=== PATIENT | female | born 1950 | race Caucasian/White ===

== ENCOUNTER → 2017-09-10 07:28 | Outpatient (CLI) | payer OTHER, SELFPAY ==
[2017-09-10 08:41] LABS: Add Manual Diff / Slide Review YES; Hematocrit 41.2 % (36-46); Hemoglobin 13.7 g/dL (12.0-16.0); Mean Corpuscular HGB Conc 33.2 % (30-36); Mean Corpuscular Volume 96.1 fL (80-100); Platelet Count 225 X10^3/uL (150-400); Red Blood Cell Count 4.28 X10^6/uL (4.0-5.2); Red Cell Distribution Width 12.8 % (11.6-14.8); White Blood Cell Count 3.8 X10^3/uL (4.5-11.0)
[2017-09-10 08:50] LABS: Alanine Aminotransferase 28 IU/L (9-52); Albumin 4.3 g/dL (3.5-5.0); Albumin Globulin Ratio 1.7 (1.0-2.8); Alkaline Phosphatase 41 U/L (38-126); Aspartate Aminotransferase 26 IU/L (14-36); BUN Creatinine Ratio 17.5 (6-22); Bilirubin Total 0.8 mg/dL (0.2-1.3); Blood Urea Nitrogen 14 mg/dL (7-17); Calcium 9.5 mg/dL (8.4-10.2); Carbon Dioxide 33 mmol/L (22-32); Chloride 100 mmol/L (98-107); Cholesterol 213 mg/dL (140-199); Estimated Glomerular Filt Rate > 60.0 mL/min (>60); Globulin 2.6 g/dL (1.7-4.1); Glucose 93 mg/dL (80-110); HDL Cholesterol 63 mg/dL (40-60); HEMOLYSIS < 15 (0-50); LDL Cholesterol Calculated 136 mg/dL (<100); Potassium 4.3 mmol/L (3.4-5.1); Sodium 140 mmol/L (137-145); Total Protein 6.9 g/dL (6.3-8.2); Triglycerides 69 mg/dL (35-150)
[2017-09-10 09:16] LABS: Neutrophils Absolute Manual 2014 /uL (3000-5900); Total Cells Counted 100
[2017-09-10 09:17] LABS: RBC Morphology Normal Morphology
[2017-09-10 09:22] LABS: TSH w/ Reflex to FT4 3.88 uIU/mL (0.47-4.68)
== END ==
PROVIDERS: PCP Family Medicine; Visit Provider Family Medicine
DX: K21.9 Gastro-esophageal reflux disease without esophagitis (principal); E78.5 Hyperlipidemia, unspecified
CPT/HCPCS: 36415; 80053; 80061; 84443; 85025

== ENCOUNTER → 2017-10-06 13:37 | Outpatient (CLI) | payer OTHER, SELFPAY ==
--- NOTE | 2017-10-06 13:39 | DI.RAD.S_ITS ---
This blank DEXA report has been sent in error by the PACS system. The correct and complete report will be forthcoming in 1-2 days. Thank you for your patience and understanding. Dictated by: Linda Whittington MD, PhD on 10/07/2017 at 9:53 Approved by: Linda Whittington MD, PhD on 10/07/2017 at 16:33
== END ==
PROVIDERS: PCP Family Medicine; Visit Provider Family Medicine
DX: M85.851 Other specified disorders of bone density and structure, right thigh (principal)
CPT/HCPCS: 77080

== ENCOUNTER 2017-11-01 09:04 | Emergency (ER) | payer OTHER, SELFPAY ==
--- NOTE | 2017-11-01 09:11 | ED_ITS ---
HPI - Arrhythmia/Palpitations General Chief Complaint: Arrhythmia/Palpitations Stated Complaint: SENT BY HER DOCTOR FOR PALPITATIONS Time Seen by Provider: 11/01/17 09:06 Source: patient Mode of arrival: ambulatory Limitations: no limitations History of Present Illness HPI narrative: 66-year-old female here for evaluation of palpitations. Patient states that they have been going on for the past several weeks. She states that she called her primary doctor today to schedule appointment the told her to come to the emergency department. Has never had these prior to a couple weeks ago. They are not associated with chest pain, shortness of breath , lightheadedness, passing out. She states she feels that more at night. Related Data Home Medications Medication Instructions Recorded Confirmed cholecalciferol (vitamin D3) 2,000 mg PO QDAY #0 07/03/10 11/01/17 [Vitamin D3] diclofenac 1 % topical gel 2 gram TOP QID PRN 09/22/17 11/01/17 [id number]-zyouurnlavmcs-rscj 1 - 2 cap PO QDAY PRN 11/01/17 11/01/17 calcium carbonate-vitamin D3 1 tab PO DAILY 11/01/17 11/01/17 [Calcium 600 + D(3)] omega-3 fatty acids [Fish Oil 1,000 mg PO BID 11/01/17 11/01/17 Concentrate] Previous Rx's Medication Instructions Recorded ranitidine HCl [Zantac] 150 mg PO BID #60 tab 12/21/16 metronidazole [MetroCream] 0.75 % TOPICAL BID #60 gm 08/16/17 lactobacillus combination no.8 3 3,000 mmu cells PO DAILY #90 cap 09/22/17 billion cell capsule multivitamin tablet 1 tab PO DAILY #90 tab 09/22/17 vitamin B complex tablet 1 tab PO DAILY #90 tab 09/22/17 Allergies Allergy/AdvReac Type Severity Reaction Status Date / Time Sulfa (Sulfonamide Allergy Mild Verified 09/22/17 10:45 Antibiotics) [SULFA (SULFONAMIDE ANTIBIOTICS)] Review of Systems Constitutional Denies fever(s), Denies frequent falls and Denies headache(s) ENT Ears, Nose, Mouth, and Throat: Denies vertigo, Denies dizziness and Denies headache(s) Cardiovascular Denies chest pain, Denies chest pain with activity, Denies syncope, Denies edema , Reports irregular heart rhythm, Denies radiating jaw, neck or arm pain, Reports palpitations and Denies dyspnea Respiratory Denies dyspnea and Denies wheezing Gastrointestinal Gastrointestinal: Denies abdominal pain, Denies change in bowel habits, Denies diarrhea, Denies nausea and Denies vomiting Musculoskeletal Denies myalgias and Denies arthralgias Integumentary/Breasts Denies lesions and Denies rash Neurologic Denies behavioral changes, Denies vertigo, Denies dizziness, Denies syncope, Denies frequent falls and Denies headache(s) Psychiatric Denies behavioral changes Endocrine Reports palpitations Hematologic/Lymphatic Denies easy bleeding and Denies easy bruising Allergic/Immunologic Denies wheezing FOR[facility] Medical History Carpal tunnel syndrome (Chronic ~1974) Chronic sinusitis (Chronic) Cluster headache (Chronic ~1993) Irregular menstrual cycle (Chronic ~1970) Osteoarthritis (Chronic ~2010) Ovarian cyst (Chronic ~1970) Rosacea (Chronic ~2012) Chicken pox (Resolved ~1956) Measles (Resolved ~1958) Surgical History H/O toe surgery (Acute) Anesthesia (Resolved) History of carpal tunnel repair (~1992) History of tonsillectomy (~1970) Status post breast biopsy Status post laparoscopy (~1983) Family History Father Age: 94 Osteoarthritis High cholesterol Grandfather Heart disease Hypertension Grandmother Heart disease Hypertension Stroke Mother Age: 94 Congestive heart failure Hypertension High cholesterol Grandfather Cancer Sister Cancer Social History marital status: number of children: 0 household members: spouse pets and animals: Yes education level: high school occupational status: other (retired) Smoking Status: Never smoker alcohol intake: current substance use type: does not use Exam Initial Vital Signs Initial Vital Signs: Vital Signs Temperature 98.1 F 11/01/17 09:24 Pulse Rate 80 11/01/17 09:24 Respiratory Rate 23 11/01/17 09:24 Blood Pressure 156/72 H 11/01/17 09:24 Pulse Oximetry 100 11/01/17 09:24 Const General: cooperative, healthy appearing, comfortable, well developed, well groomed and No acute distress Orientation: alert, awake and oriented x3 Resp Effort & Inspection: normal respiratory effort Auscultation: clear to auscultation bilaterally Cardio Rate: regular rate Rhythm: regular rhythm Heart Sounds: no murmurs Pulses: radial pulses present GI Inspection: non-distended Palpation: soft, No firm and No tender Skin Lesions: no lesions Rashes: no rashes Neuro General: alert, awake and oriented x3 Extrem General: normal to inspection and capillary refill normal Psych Appearance: grossly normal and well kempt Course Orders Ordered: ED Orders 11/01/17 09:07 EKG-12 Lead Stat 11/01/17 09:10 Basic Metabolic Panel Stat Complete Blood Count AUTO DIFF Stat Thyroid Stimulating Hormone Stat Vital Signs - 8 hr 11/01/17 09:24 11/01/17 09:30 11/01/17 10:42 Temperature 98.1 F Pulse Rate 80 69 62 Respiratory Rate 23 12 15 Blood Pressure 156/72 H Blood Pressure [Left Arm] 156/93 H 141/83 H Pulse Oximetry 100 100 100 MDM - Arrhythmia/Palpitations Lab Data Attestation: I reviewed the patient's lab results. Result diagrams: 11/01/17 09:10 11/01/17 09:10 Lab Results 11/01/17 11/01/17 11/01/17 Range/Units 09:10 09:10 09:10 WBC 4.9 (4.5-11.0) X10^3/uL RBC 4.31 (4.0-5.2) X10^6/uL Hgb 14.0 (12.0-16.0) g/dL Hct 41.2 (36-46) % MCV 95.4 (80-100) fL MCH 32.4 (26-34) PG MCHC 33.9 (30-36) % RDW 12.7 (11.6-14.8) % Plt Count 226 (150-400) X10^3/uL Neut % (Auto) 51.2 (50-75) % Lymph % (Auto) 36.2 (25-40) % [place] % (Auto) 8.8 (3-14) % Eos % (Auto) 3.0 (2-4) % Baso % (Auto) 0.8 (0-2) % Neut # (Auto) 2500 L (3254-8161) /uL Sodium 144 (137-145) mmol/L Potassium 3.8 (3.4-5.1) mmol/L Chloride 103 (98-107) mmol/L Carbon Dioxide 31 (22-32) mmol/L BUN 17 (7-17) mg/dL Creatinine 0.70 (0.52-1.04) mg/dL Estimated GFR > 60.0 (>60) mL/min BUN/Creatinine Ratio 24.3 H (6-22) Glucose 92 (80-110) mg/dL Calcium 9.7 (8.4-10.2) mg/dL TSH 4.09 (0.47-4.68) uIU/mL ECG Data Attestation: I personally reviewed and interpreted this ECG as follows: Prior ECG tracings: not available for review Interpretation: Sinus rhythm ventricular rate is 64 normal axis normal intervals Normal QRS normal QTC nonspecific ST T wave changes MDM Narrative Medical decision making narrative: patient in sinus rhythm here in the emergency department. Labs unremarkable. Patient was concerned about hyperthyroidism however her TSH is unremarkable. Not having any associated symptoms such as chest pain or lightheadedness or shortness of breath. Informed patient that she needed to contact her primary doctor to discuss the indications for a Holter monitor. She was given return precautions. Both she and her was at bedside expressed understanding and agreement with plan Discharge Plan Departure Patient Disposition: Home Clinical Impression: Palpitations Instructions: DI for Palpitations Activity Restrictions/Additional Instructions: recommend that you contact your primary care doctor to discuss the indications for a Holter monitor. Return to the emergency department for any new or worsening symptoms Prescriptions: No Action cholecalciferol (vitamin D3) [Vitamin D3] 1,000 UNIT tablet 2,000 mg PO QDAY Qty: 0 RF: 0 ranitidine HCl [Zantac] 150 MG tablet 150 mg PO BID Qty: 60 RF: 11 metronidazole [MetroCream] 0.75 % cream 0.75 % Topical BID Qty: 60 RF: 2 diclofenac sodium 1 % gel 2 gram TOP QID PRN (Reason: Pain, Mild) RF: 0 multivitamin [Multiple Vitamins] tablet 1 tab PO DAILY Qty: 90 RF: 0 vitamin B complex [B Complex-Vitamin B12] tablet 1 tab PO DAILY Qty: 90 RF: 0 lactobacillus combination no.8 [Adult Probiotic] 3 billion cell capsule 3,000 mmu cells PO DAILY Qty: 90 RF: 0 calcium carbonate-vitamin D3 [Calcium 600 + D(3)] 600 mg(1,500mg) -400 unit Tablet 1 tab PO DAILY RF: 0 twlrcyntyx-vbsfztbszivnx-kzne 1 EACH capsule 1 - 2 cap PO QDAY PRN (Reason: Headache) RF: 0 omega-3 fatty acids [Fish Oil Concentrate] 1,000 mg capsule 1,000 mg PO BID RF: 0
[2017-11-01 09:24] VITALS: BP 156/72; PULSE 80; RESP 23; TEMP 36.7; O2SAT 100
[2017-11-01 09:30] VITALS: BP 156/93; PULSE 69; RESP 12; O2SAT 100
[2017-11-01 10:04] LABS: Add Manual Diff / Slide Review NO; Basophils Percent Auto 0.8 % (0-2); Hematocrit 41.2 % (36-46); Lymphocytes Percent Auto 36.2 % (25-40); Mean Corpuscular HGB Conc 33.9 % (30-36); Mean Corpuscular Hemoglobin 32.4 PG (26-34); Mean Corpuscular Volume 95.4 fL (80-100); Monocytes Percent Auto 8.8 % (3-14); Neutrophils Absolute Auto 2500 /uL (3000-5900); Neutrophils Percent Auto 51.2 % (50-75); Platelet Count 226 X10^3/uL (150-400); Red Blood Cell Count 4.31 X10^6/uL (4.0-5.2); Red Cell Distribution Width 12.7 % (11.6-14.8); White Blood Cell Count 4.9 X10^3/uL (4.5-11.0)
[2017-11-01 10:11] LABS: BUN Creatinine Ratio 24.3 (6-22); Blood Urea Nitrogen 17 mg/dL (7-17); Calcium 9.7 mg/dL (8.4-10.2); Carbon Dioxide 31 mmol/L (22-32); Chloride 103 mmol/L (98-107); Estimated Glomerular Filt Rate > 60.0 mL/min (>60); Glucose 92 mg/dL (80-110); HEMOLYSIS < 15 (0-50); Potassium 3.8 mmol/L (3.4-5.1); Sodium 144 mmol/L (137-145)
[2017-11-01 10:42] VITALS: BP 141/83; PULSE 62; RESP 15; O2SAT 100
[2017-11-01 10:43] LABS: Thyroid Stimulating Hormone 4.09 uIU/mL (0.47-4.68)
[2017-11-01 11:18] VITALS: BP 148/81; PULSE 66; RESP 20; O2SAT 97
== END 2017-11-01 11:19 | disposition home or self-care (01) ==
PROVIDERS: Emergency Provider Emergency Medicine; PCP Family Medicine
DX: R00.2 Palpitations (principal)
CPT/HCPCS: 36591; 80048; 84443; 85025; 93005; 99282; 99284

== ENCOUNTER → 2017-11-18 09:23 | Outpatient (CLI) | payer OTHER, SELFPAY ==
--- NOTE | 2017-12-03 16:17 | PM.CARDMON.1 ---
Superintendent Measurement Report Referral & Results Date Patient Seen: 11/18/17 Requesting provider: Jovita Thomas Indication: Palpitations Duration of monitoring (days): 7 Diary information: There 50 diary entries from the patient associated with sinus rhythm and PACs There were 96 patient triggered events associated with sinus rhythm, PACs, PVCs and an episode of SVT/atrial tachycardia with a rate of 129 beats per minute Data: Minimum heart rate identified was 40 beats per minute at 05:07 on 11/24/2017 Maximum heart rate was sinus tachycardia at 150 beats per minute at 09:00 on 11/23/2017 Less than 1% of identified beats or either ventricular supraventricular ectopic in origin Patient had 6 runs of a atrial tachycardia with maximum rate of 140 beats per minute with a duration of 4 beats and the longest was 16 beats at 129 beats per minute Impression: Relatively normal personnel monitor. Occasional PACs and PVCs. Patient's reported symptoms do not appear to be consistently associated with any particular dysrhythmia
--- NOTE | 2017-12-03 16:20 | P.HOLT.S_ITS ---
Crystal Report Developer Report Referral & Results Date Patient Seen: 11/18/17 Requesting provider: Jovita Thomas Indication: Palpitations Duration of monitoring (days): 7 Diary information: There 50 diary entries from the patient associated with sinus rhythm and PACs There were 96 patient triggered events associated with sinus rhythm, PACs, PVCs and an episode of SVT/atrial tachycardia with a rate of 129 beats per minute Data: Minimum heart rate identified was 40 beats per minute at 05:07 on 2017 Maximum heart rate was sinus tachycardia at 150 beats per minute at 09:00 on Less than 1% of identified beats or either ventricular supraventricular ectopic in origin Patient had 6 runs of a atrial tachycardia with maximum rate of 140 beats per minute with a duration of 4 beats and the longest was 16 beats at 129 beats per minute Impression: Relatively normal quality assurance monitor body. Occasional PACs and PVCs. Patient's reported symptoms do not appear to be consistently associated with any particular dysrhythmia
== END ==
PROVIDERS: PCP Family Medicine; Visit Provider Family Medicine
DX: R00.2 Palpitations (principal)
CPT/HCPCS: 0296T

== ENCOUNTER 2018-01-03 07:03 | Day surgery (SDC) | payer OTHER, SELFPAY ==
[2018-01-03 08:15] VITALS: BP 147/97; PULSE 70; RESP 16; TEMP 36.9; O2SAT 99; BMI 21.4
[2018-01-03] MEDS: SODIUM CHLORIDE 0.9% 1,000 ML 200 ML IV (08:25)
--- NOTE | 2018-01-03 09:22 | PM.HP.1 ---
History of Present Illness Date Patient Seen: 01/03/18 Time Patient Seen: 09:23 Chief complaint: [id number] Narrative: Patient is a woman here for screening colonoscopy. Her last exam was 10 years ago. She might have an uncle who has colon cancer. No blood in her stool. Patient History Medical History Carpal tunnel syndrome (Chronic ~1974) Chronic sinusitis (Chronic) Cluster headache (Chronic ~1993) Irregular menstrual cycle (Chronic ~1970) Osteoarthritis (Chronic ~2010) Ovarian cyst (Chronic ~1970) Rosacea (Chronic ~2012) Chicken pox (Resolved ~1956) Measles (Resolved ~1958) Surgical History H/O toe surgery (Acute) Anesthesia (Resolved) History of carpal tunnel repair (~1992) History of tonsillectomy (~1970) Status post breast biopsy Status post laparoscopy (~1983) Family & Social History Family History: Reviewed 01/03/18 by Bob Cleveland MD Social History: household members spouse Tobacco & Substance use: Smoking Status Never smoker alcohol intake current alcohol intake frequency 0-2 drinks per day Meds Home Medications Medication Instructions Recorded Confirmed Type cholecalciferol (vitamin D3) 2,000 mg PO QDAY #0 07/03/10 01/03/18 History [Vitamin D3] metronidazole [MetroCream] 0.75 % TOPICAL BID #60 gm 08/16/17 01/03/18 Rx diclofenac 1 % topical gel 2 gram TOP QID PRN 09/22/17 01/03/18 History lactobacillus combination no.8 3 3,000 mmu cells PO DAILY #90 cap 09/22/17 01/03/18 Rx billion cell capsule multivitamin tablet 1 tab PO DAILY #90 tab 09/22/17 01/03/18 Rx vitamin B complex tablet 1 tab PO DAILY #90 tab 09/22/17 01/03/18 Rx tpsawzsixt-tygziabxqrrvc-krfd 1 - 2 cap PO QDAY PRN 11/01/17 01/03/18 History calcium carbonate-vitamin D3 1 tab PO DAILY 11/01/17 01/03/18 History [Calcium 600 + D(3)] omega-3 fatty acids [Fish Oil 1,000 mg PO BID 11/01/17 01/03/18 History Concentrate] ranitidine 150 mg tablet 150 mg PO BID #60 tab 12/15/17 01/03/18 Rx Allergies Allergy/AdvReac Type Severity Reaction Status Date / Time Sulfa (Sulfonamide Allergy Mild Verified 01/03/18 08:24 Antibiotics) [SULFA (SULFONAMIDE ANTIBIOTICS)] Review of Systems Review of Systems All systems reviewed & are unremarkable except as noted in HPI and below Cardiovascular Comments: Occasional heart irregularity Musculoskeletal Comments: Arthritis principally of the hands and feet Exam Vital Signs (past 8 hours): - 01/03/18 08:15 Temperature 98.4 F Pulse Rate 70 Respiratory Rate 16 Blood Pressure 147/97 H Pulse Oximetry 99 Oxygen Delivery Method Room Air Narrative Exam Narrative: Operative no apparent distress lungs are clear no rales or rhonchi heart regular rate and rhythm no murmur gallop abdomen is soft nontender without mass. Alert and oriented x3. Assessment & Plan Plan: Assessment/Plan Narrative: Patient here for screening colonoscopy. I have discussed the procedure and the rationale with the patient including risks of bleeding, perforation which would necessitate a major operation, failure to find remove all lesions and the potential to tattoo. They appeared to understand and wished to proceed.
--- NOTE | 2018-01-03 09:25 | P.HP_ITS ---
History of Present Illness Date Patient Seen: 01/03/18 Time Patient Seen: 09:23 Chief complaint: [id number] Narrative: Patient is a woman here for screening colonoscopy. Her last exam was 10 years ago. She might have an uncle who has colon cancer. No blood in her stool. Patient History Medical History Carpal tunnel syndrome (Chronic ~1974) Chronic sinusitis (Chronic) Cluster headache (Chronic ~1993) Irregular menstrual cycle (Chronic ~1970) Osteoarthritis (Chronic ~2010) Ovarian cyst (Chronic ~1970) Rosacea (Chronic ~2012) Chicken pox (Resolved ~1956) Measles (Resolved ~1958) Surgical History H/O toe surgery (Acute) Anesthesia (Resolved) History of carpal tunnel repair (~1992) History of tonsillectomy (~1970) Status post breast biopsy Status post laparoscopy (~1983) Family & Social History Family History: Reviewed 01/03/18 by Bob Cleveland MD Social History: household members spouse Tobacco & Substance use: Smoking Status Never smoker alcohol intake current alcohol intake frequency 0-2 drinks per day Meds Home Medications Medication Instructions Recorded Confirmed Type cholecalciferol (vitamin D3) 2,000 mg PO QDAY #0 07/03/10 01/03/18 History [Vitamin D3] metronidazole [MetroCream] 0.75 % TOPICAL BID #60 gm 08/16/17 01/03/18 Rx diclofenac 1 % topical gel 2 gram TOP QID PRN 09/22/17 01/03/18 History lactobacillus combination no.8 3 3,000 mmu cells PO DAILY #90 cap 09/22/1701/03 Rx billion cell capsule multivitamin tablet 1 tab PO DAILY #90 tab 09/22/17 01/03/18 Rx vitamin B complex tablet 1 tab PO DAILY #90 tab 09/22/17 01/03/18 Rx gnhyzaudfl-inldbcoxhmwhx-ddcw 1 - 2 cap PO QDAY PRN 11/01/17 01/03/18 History calcium carbonate-vitamin D3 1 tab PO DAILY 11/01/17 01/03/18 History [Calcium 600 + D(3)] omega-3 fatty acids [Fish Oil 1,000 mg PO BID 11/01/17 01/03/18 History Concentrate] ranitidine 150 mg tablet 150 mg PO BID #60 tab 12/15/17 01/03/18 Rx Allergies Allergy/AdvReac Type Severity Reaction Status Date / Time Sulfa (Sulfonamide Allergy Mild Verified 01/03/18 08:24 Antibiotics) [SULFA (SULFONAMIDE ANTIBIOTICS)] Review of Systems Review of Systems All systems reviewed & are unremarkable except as noted in HPI and below Cardiovascular Comments: Occasional heart irregularity Musculoskeletal Comments: Arthritis principally of the hands and feet Exam Vital Signs (past 8 hours): - 01/03/18 08:15 Temperature 98.4 F Pulse Rate 70 Respiratory Rate 16 Blood Pressure 147/97 H Pulse Oximetry 99 Oxygen Delivery Method Room Air Narrative Exam Narrative: Operative no apparent distress lungs are clear no rales or rhonchi heart regular rate and rhythm no murmur gallop abdomen is soft nontender without mass. Alert and oriented x3. Assessment & Plan Plan: Assessment/Plan Narrative: Patient here for screening colonoscopy. I have discussed the procedure and the rationale with the patient including risks of bleeding, perforation which would necessitate a major operation, failure to find remove all lesions and the potential to tattoo. They appeared to understand and wished to proceed.
--- NOTE | 2018-01-03 09:25 | PM.PREOP ---
Pre-operative Note Interval Note Pre-op Check: Yes History & Physical exam performed today by Physician Changes: No ASA Class (for procedural sedation): I
[2018-01-03] MEDS: fentaNYL 250 MCG/5 ML INJ IV (09:55)
[2018-01-03] MEDS: MIDAZOLAM 5 MG/5 ML VIAL IV (09:56)
--- NOTE | 2018-01-03 10:03 | PM.OP.ENDO ---
Operative Date/Time/Diagnoses Date of procedure: 01/03/18 Time of procedure: 10:04 Pre-op diagnosis: Screening examination. Last colonoscopy 10 years ago. Post-op diagnosis: same (Sigmoid diverticulosis. External hemorrhoids.) Procedure & Clinicians Study performed: Colonoscopy Same procedure as scheduled: Yes Indications: Screening Surgeon: Bob Cleveland Procedure Notes SCOAP/Timeout: Performed Procedure in detail: The patient was placed in the left lateral decubitus position and underwent IV sedation directed by the surgeon consisting of fentanyl and Versed. Digital exam was remarkable large external hemorrhoids. The scope was inserted and advanced through the rectum into the sigmoid, descending, transverse, and ascending colon. The patient was noted to have some sigmoid diverticuli but no narrowing or inflammation. There was some tortuosity.. The cecum was reached identified by the ileocecal valve and the appendiceal opening. The scope was gradually brought out. No Polyps were found. The scope ultimately was retroflexed in the rectum. The appearance was normal. The scope was removed and the patient tolerated the procedure well Sedation minutes: 29 Findings: diverticulosis (Sigmoid) and other findings (External hemorrhoids) Specimen(s): none sent Complications: none Recommendations: Colonscopy in 10 years Follow up: as needed Disposition: PACU
[2018-01-03 10:07] VITALS: BP 117/74; PULSE 66; RESP 16; TEMP 36.6; O2SAT 98
[2018-01-03 10:12] VITALS: BP 121/74; PULSE 64; RESP 16; O2SAT 94
[2018-01-03 10:17] VITALS: BP 127/77; PULSE 71; RESP 12; TEMP 37; O2SAT 95
[2018-01-03 10:26] VITALS: BP 136/85; PULSE 66; RESP 16; TEMP 36.8; O2SAT 100
== END 2018-01-03 10:36 | disposition home or self-care (01) ==
PROVIDERS: PCP Family Medicine; Visit Provider Surgery
PROC: 0DJD8ZZ Inspection of Lower Intestinal Tract, Via Natural or Artificial Opening Endoscopic (ICD-10-PCS; CPT 45378; principal; 2018-01-03 08:45)
DX: Z12.11 Encounter for screening for malignant neoplasm of colon (principal); K57.30 Diverticulosis of large intestine without perforation or abscess without bleeding; K64.4 Residual hemorrhoidal skin tags
CPT/HCPCS: G0105; 99152; 99153; J2250; J3010

== ENCOUNTER → 2018-05-23 12:12 | Outpatient (CLI) | payer OTHER, SELFPAY ==
--- NOTE | 2018-05-23 | DI.MG.S_ITS ---
BILATERAL DIGITAL SCREENING MAMMOGRAM 3D/2D WITH CAD: 05/23/2018 CLINICAL: Routine screening. Family history of breast cancer. Comparison is made to exams dated: 05/20/2017 mammogram, 05/18/2016 mammogram, and 05/17/2015 mammogram - [facility]. The tissue of both breasts is heterogeneously dense. This may lower the sensitivity of mammography. Current study was also evaluated with a Computer Aided Detection (CAD) system. There are benign post operative findings in the left breast. No significant masses, calcifications, or other findings are seen in either breast. There has been no significant interval change. IMPRESSION: There is no mammographic evidence of malignancy. A 1 year screening mammogram is recommended. This exam was interpreted at Station ID: [id number]. NOTE: For mammograms, a report in lay terms will be sent to the patient. Approximately 15% of breast malignancies will not be visualized mammographically. In the management of a palpable breast mass, a negative mammogram must not discourage biopsy of a clinically suspicious lesion. Electronically Signed By: Sea vasquez/[email or web address]:05/23/2018 13:15:40 letter sent: Normal Exam ACR BI-RADS Category 2: Benign Finding(s) [id number]
== END ==
PROVIDERS: PCP Family Medicine; Visit Provider Family Medicine
DX: Z12.31 Encounter for screening mammogram for malignant neoplasm of breast (principal); Z80.3 Family history of malignant neoplasm of breast
CPT/HCPCS: 77063; 77067

== ENCOUNTER 2019-03-10 15:03 | Emergency (ER) | payer OTHER, SELFPAY ==
[2019-03-10 15:49] VITALS: BP 173/86; PULSE 61; RESP 18; TEMP 36.9; O2SAT 100; BMI 21.9
[2019-03-10 16:07] LABS: Add Manual Diff / Slide Review NO; Basophils Absolute Auto 100 /uL (0-100); Basophils Percent Auto 1.1 % (0-2); Eosinophils Absolute Auto 100 /uL (0-450); Eosinophils Percent Auto 2.6 % (2-4); Hematocrit 40.8 % (36-46); Hemoglobin 13.6 g/dL (12.0-16.0); Lymphocytes Absolute Auto 2200 /uL (1100-4500); Lymphocytes Percent Auto 41.1 % (25-40); Mean Corpuscular HGB Conc 33.3 % (30-36); Mean Corpuscular Hemoglobin 31.3 PG (26-34); Mean Corpuscular Volume 94.1 fL (80-100); Monocytes Absolute Auto 400 /uL (0-900); Neutrophils Absolute Auto 2500 /uL (1500-7000); Neutrophils Percent Auto 47.2 % (50-75); Platelet Count 209 X10^3/uL (150-400); Red Blood Cell Count 4.34 X10^6/uL (4.0-5.2); Red Cell Distribution Width 13.3 % (11.6-14.8); White Blood Cell Count 5.3 X10^3/uL (4.5-11.0)
[2019-03-10 16:14] LABS: Prothrombin Time 12.1 SECONDS (10.1-12.7)
[2019-03-10 16:17] LABS: PTT Partial Thromboplastin Tim 34 SECONDS (26.4-36.2)
[2019-03-10 16:19] LABS: Alanine Aminotransferase 23 IU/L (<35); Albumin 4.3 g/dL (3.5-5.0); Albumin Globulin Ratio 1.4 (1.0-2.8); Alkaline Phosphatase 49 U/L (38-126); Aspartate Aminotransferase 28 IU/L (14-36); BUN Creatinine Ratio 12.9 (6-22); Bilirubin Total 0.6 mg/dL (0.2-1.3); Blood Urea Nitrogen 9 mg/dL (7-17); Calcium 9.7 mg/dL (8.4-10.2); Carbon Dioxide 29 mmol/L (22-32); Chloride 102 mmol/L (98-107); Estimated Glomerular Filt Rate > 60.0 mL/min (>60); Globulin 3.1 g/dL (1.7-4.1); Glucose 94 mg/dL (80-110); HEMOLYSIS < 15 (0-50); Lipase 122 U/L (23-300); Potassium 4.2 mmol/L (3.4-5.1); Sodium 139 mmol/L (137-145); Total Protein 7.4 g/dL (6.3-8.2)
[2019-03-10] MEDS: DICYCLOMINE 10 MG CAPSULE 20 MG PO (18:23)
[2019-03-10] MEDS: ONDANSETRON 4 MG ODT SL (18:23)
--- NOTE | 2019-03-10 21:40 | ED_ITS ---
HPI - Abdominal Pain General Chief Complaint: Abdominal Pain Stated Complaint: upper abdominal pain Time Seen by Provider: 03/10/19 17:30 Source: patient Mode of arrival: Family Vehicle Limitations: no limitations History of Present Illness HPI narrative: The patient is a 68-year-old female who who developed abdominal pain last night that was sharp and crampy. The pain resolved in the patient was able to sleep all night. This morning she redevelop the pain and discomfort which became diffuse and migrated to different areas of her abdomen. She called her primary care physician who placed her on clear liquids. She was sent to the emergency department to be evaluated. The patient's pain and discomfort seemed to get worse drinking broth. The pain did not radiate to her back. She had a laparoscopy in 1979. She denies a history of gallbladder disease appendectomy pancreatitis. She denies any chest pain shortness of breath. She has had no fever chills or sweats. The pain is crampy and sharp. She denies a history of irritable bowel syndrome Crohn's disease or ulcerative colitis and diverticulitis. She has had no nausea vomiting diarrhea. Her bowel movements have been normal without melena or hematochezia. Related Data Home Medications Medication Instructions Recorded Confirmed cholecalciferol (vitamin D3) 2,000 mg PO QDAY #0 07/03/10 09/13/18 [Vitamin D3] diclofenac sodium 1 % topical gel 2 gram TOP QID PRN 09/22/17 09/13/18 pnrakljylz-aorvschrpshww-dcfg 1 - 2 cap PO QDAY PRN 11/01/17 09/13/18 calcium carbonate-vitamin D3 1 tab PO DAILY 11/01/17 09/13/18 [Calcium 600 + D(3)] omega-3 fatty acids [Fish Oil 1,000 mg PO BID 11/01/17 09/13/18 Concentrate] Previous Rx's Medication Instructions Recorded lactobacillus combination no.8 3 3,000 mmu cells PO DAILY #90 cap 09/22/17 billion cell capsule multivitamin 1 tab PO DAILY #90 tab 09/22/17 vitamin B complex 1 tab PO DAILY #90 tab 09/22/17 ranitidine HCl 150 mg tablet 150 mg PO BID #60 tab 12/15/17 ginkgo biloba 60 mg capsule 60 mg PO BID #30 cap 10/18/18 metronidazole 0.75 % topical cream 0.75 % TOPICAL BID #60 gm 10/18/18 dicyclomine 20 mg PO TID PRN #14 tab 03/10/19 ibuprofen 600 mg PO QID PRN #20 tab 03/10/19 ondansetron HCl [Zofran] 4 mg PO Q8H PRN #10 tab 03/10/19 Allergies Allergy/AdvReac Type Severity Reaction Status Date / Time Sulfa (Sulfonamide Allergy Mild Verified 09/13/18 11:46 Antibiotics) [SULFA (SULFONAMIDE ANTIBIOTICS)] Review of Systems Review of Systems ROS Unobtainable: All systems reviewed & are unremarkable except as noted in HPI and below Patient History Medical History Carpal tunnel syndrome (Chronic ~1974) Chicken pox (Resolved ~1956) Chronic sinusitis (Chronic) Cluster headache (Chronic ~1993) Irregular menstrual cycle (Chronic ~1970) Measles (Resolved ~1958) Osteoarthritis (Chronic ~2010) Osteoarthritis of multiple joints (Acute) Ovarian cyst (Chronic ~1970) Rosacea (Chronic ~2012) Surgical History Anesthesia (Resolved) H/O toe surgery (Acute) History of carpal tunnel repair (~1992) History of tonsillectomy (~1970) Status post breast biopsy Status post laparoscopy (~1983) Family History Father Age: 95 Osteoarthritis High cholesterol Grandfather Heart disease Hypertension Grandmother Heart disease Hypertension Stroke Mother Age: 95 Congestive heart failure Hypertension High cholesterol Grandfather Cancer Sister Cancer Social History marital status: number of children: 0 household members: spouse pets and animals: Yes education level: high school occupational status: other (retired) Smoking Status: Never smoker alcohol intake: current substance use type: does not use Smoking Status: Never smoker alcohol intake frequency: holidays/special occasions only Substance Use Type: marijuana Exam Narrative Exam Narrative: PHYSICAL EXAM: CONSTITUTIONAL: Awake, Alert, Oriented, Coherent, Cooperative in NAD. Does not appear toxic or ill. She is walking around in her room dressed. HEAD: AT/NC EENT: PERRL, FROM of eyes, no discharge, no nystagmus Oral mucosa is moist and pink, posterior pharynx is without erythema or exudate. NECK: Supple, no obvious JVD, Trachea is midline without stridor, no palpable LN or masses. SPINE: No gross deformity, no palpable tenderness of the cervical, thoracic, lumbar or sacral spine. No CVA tenderness. THORAX: No deformity, retractions, chest wall tenderness, subcutaneous air or crepitice. LUNGS: Clear with symmetrical breath sounds without respiratory distress HEART: Normal heart tones, regular rhythm and rate without murmur. ABDOMEN: Her abdomen was essentially soft with diffuse mild tenderness without guarding rebound or rigidity. Rectal exam reveals good sphincter tone with evidence of external tags. Stool was brown and tested negative for occult blood. EXTREMITIES: No edema, cyanosis, deformity or tenderness. SKIN: No rash, bruising, petechiae or purpura. NEURO: Awake, alert, oriented, conversive, cranial nerves II-XII are symmetrical and normal, moves all 4 extremities and is ambulatory Initial Vital Signs Initial Vital Signs: Vital Signs Temperature 98.4 F 03/10/19 15:49 Pulse Rate 61 03/10/19 15:49 Respiratory Rate 18 03/10/19 15:49 Blood Pressure 173/86 H 03/10/19 15:49 Pulse Oximetry 100 03/10/19 15:49 Course Course Course Narrative: The patient has minimal symptoms other than complaining of diffuse abdominal cramps. Her physical exam is within normal limits without any guarding rebound or rigidity. Her laboratory tests were within normal limits. The patient was discharged home and placed on ibuprofen 600 mg Q 6 hours as needed for pain and discomfort unrelieved by Bentyl 20 mg t.i.d. for abdominal cramps. For nausea she was given Zofran. She was instructed that if she develops worsening pain or discomfort localizing pain with abdominal tenderness persistent nausea and vomiting unable to keep anything down fever dizziness or passing-out she needs to return to the emergency department. Otherwise she follows up with her primary care physician. Orders Ordered: ED Orders 03/10/19 15:58 Complete Blood Count AUTO DIFF Stat Comprehensive Metabolic Panel Stat Lipase Stat Partial Thromboplastin Time Stat Prothrombin Time INR Stat Discontinued Medications Dicyclomine HCl (Bentyl) 20 mg PO NOW ONE Stop: 03/10/19 18:02 Last Admin: 03/10/19 18:23 Dose: 20 mg Documented by: MANSOOR Ondansetron HCl (Zofran Odt) 4 mg SL NOW ONE Stop: 03/10/19 18:02 Last Admin: 03/10/19 18:23 Dose: 4 mg Documented by: MANSOOR Vital Signs Vital signs: Vital Signs - 8 hr 03/10/19 15:49 Temperature 98.4 F Pulse Rate 61 Respiratory Rate 18 Blood Pressure 173/86 H Pulse Oximetry 100 MDM - Abdominal Pain Lab Data Attestation: I reviewed the patient's lab results. Result diagrams: 03/10/19 15:58 03/10/19 15:58 Labs: Lab Results 03/10/19 03/10/19 03/10/19 Range/Units 15:58 15:58 15:58 WBC 5.3 (4.5-11.0) X10^3/uL RBC 4.34 (4.0-5.2) X10^6/uL Hgb 13.6 (12.0-16.0) g/dL Hct 40.8 (36-46) % MCV 94.1 (80-100) fL MCH 31.3 (26-34) PG MCHC 33.3 (30-36) % RDW 13.3 (11.6-14.8) % Plt Count 209 (150-400) X10^3/uL Neut % (Auto) 47.2 L (50-75) % Lymph % (Auto) 41.1 H (25-40) % Guthrie % (Auto) 8.0 (3-14) % Eos % (Auto) 2.6 (2-4) % Baso % (Auto) 1.1 (0-2) % Neut # (Auto) 2500 (5899-5330) /uL Lymph # (Auto) 2200 (3434-5299) /uL Guthrie # (Auto) 400 (0-900) /uL Eos # (Auto) 100 (0-450) /uL Baso # (Auto) 100 (0-100) /uL PT 12.1 (10.1-12.7) SECONDS INR 1.0 (0.9-1.3) APTT 34 (26.4-36.2) SECONDS Sodium 139 (137-145) mmol/L Potassium 4.2 (3.4-5.1) mmol/L Chloride 102 (98-107) mmol/L Carbon Dioxide 29 (22-32) mmol/L BUN 9 (7-17) mg/dL Creatinine 0.70 (0.52-1.04) mg/dL Estimated GFR > 60.0 (>60) mL/min BUN/Creatinine Ratio 12.9 (6-22) Glucose 94 (80-110) mg/dL Calcium 9.7 (8.4-10.2) mg/dL Total Bilirubin 0.6 (0.2-1.3) mg/dL AST 28 (14-36) IU/L ALT 23 (<35) IU/L Alkaline Phosphatase 49 (38-126) U/L Total Protein 7.4 (6.3-8.2) g/dL Albumin 4.3 (3.5-5.0) g/dL Globulin 3.1 (1.7-4.1) g/dL Albumin/Globulin Ratio 1.4 (1.0-2.8) Lipase 122 (23-300) U/L Point of care testing: Urine Dip Bedside Urine Glucose Negative Bedside Urine Bilirubin - Negative Bedside Urine Ketone +/- 5 Urine Specific [place] 1.010 Bedside Urine Occult Blood - Negative Bedside Urine pH 7.5 Bedside Urine Protein - Negative Bedside Urine Urobilinogen - Negative Bedside Urine Nitrite - Negative Bedside Urine Leukocytes - Negative Esterase Discharge Plan Departure Patient Disposition: Home Clinical Impression: Abdominal cramps Abdominal pain Qualifiers: Abdominal location: generalized Qualified Code(s): R10.84 - Generalized abdominal pain Discharge Date/Time: 03/10/19 18:54 Instructions: DI for Abdominal Pain-Adult Activity Restrictions/Additional Instructions: Take Zofran 4 nausea and or vomiting. Use the Bentyl 20 mg 3 times a day as ne eded for abdominal cramps. For pain on relieved by Bentyl you can use Motrin 600 mg every 6 hours as needed. If you develop worsening abdominal pain, abdominal pain localizing to a certain area, dizziness, passing out, fever associated with the pain and discomfort you need to be re-evaluated. At this time all of your laboratory tests are normal physical exam is within normal limits and a rectal exam revealed no blood in your stool. Follow-up with your primary care physician. Prescriptions: New ibuprofen 600 mg tablet 600 mg PO QID PRN (Reason: pain ) Qty: 20 RF: 0 dicyclomine 20 mg tablet 20 mg PO TID PRN (Reason: abdominal cramps) Qty: 14 RF: 0 ondansetron HCl [Zofran] 4 mg tablet 4 mg PO Q8H PRN (Reason: nausea and vomiting) Qty: 10 RF: 0 No Action metronidazole [MetroCream] 0.75 % cream 0.75 % Topical BID Qty: 60 RF: 2 ginkgo biloba 60 mg capsule 60 mg PO BID Qty: 30 RF: 0 cholecalciferol (vitamin D3) [Vitamin D3] 1,000 UNIT tablet 2,000 mg PO QDAY Qty: 0 RF: 0 ranitidine HCl [Zantac] 150 mg tablet 150 mg PO BID Qty: 60 RF: 11 diclofenac sodium 1 % gel 2 gram TOP QID PRN (Reason: Pain, Mild) RF: 0 multivitamin [Multiple Vitamins] tablet 1 tab PO DAILY Qty: 90 RF: 0 vitamin B complex [B Complex-Vitamin B12] tablet 1 tab PO DAILY Qty: 90 RF: 0 lactobacillus combination no.8 [Adult Probiotic] 3 billion cell capsule 3,000 mmu cells PO DAILY Qty: 90 RF: 0 calcium carbonate-vitamin D3 [Calcium 600 + D(3)] 600 mg(1,500mg) -400 unit Tablet 1 tab PO DAILY RF: 0 kptxquqzdg-jifwjbstimdxi-zfvj 1 EACH capsule 1 - 2 cap PO QDAY PRN (Reason: Headache) RF: 0 omega-3 fatty acids [Fish Oil Concentrate] 1,000 mg capsule 1,000 mg PO BID RF: 0 Referrals: Jovita Thomas DO [Primary Care Provider] -
== END 2019-03-10 18:54 | disposition home or self-care (01) ==
PROVIDERS: Emergency Provider Emergency Medicine; PCP Family Medicine
DX: R10.84 Generalized abdominal pain (principal); R11.2 Nausea with vomiting, unspecified; I10 Essential (primary) hypertension
CPT/HCPCS: 36415; 80053; 81003; 83690; 85025; 85610; 85730; 99283

== ENCOUNTER → 2019-07-15 10:37 | Outpatient (CLI) | payer OTHER, SELFPAY ==
--- NOTE | 2019-07-15 | DI.MG.S_ITS ---
BILATERAL DIGITAL SCREENING MAMMOGRAM 3D/2D WITH CAD: 07/15/2019 CLINICAL: Routine screening. Family history of breast cancer. Comparison is made to exams dated: 05/23/2018 mammogram, 05/20/2017 mammogram, and 05/18/2016 mammogram - [facility]. The tissue of both breasts is heterogeneously dense. This may lower the sensitivity of mammography. Current study was also evaluated with a Computer Aided Detection (CAD) system. There are benign post operative findings in the left breast. No significant masses, calcifications, or other findings are seen in either breast. There has been no significant interval change. IMPRESSION: There is no mammographic evidence of malignancy. A 1 year screening mammogram is recommended. This exam was interpreted at Station ID: [id number]. NOTE: For mammograms, a report in lay terms will be sent to the patient. Approximately 15% of breast malignancies will not be visualized mammographically. In the management of a palpable breast mass, a negative mammogram must not discourage biopsy of a clinically suspicious lesion. Electronically Signed By: Sea vasquez/rogelio:07/17/2019 08:00:35 letter sent: Normal Exam ACR BI-RADS Category 2: Benign Finding(s) 3342F
== END ==
PROVIDERS: PCP Family Medicine; Referring Provider Family Medicine; Visit Provider Family Medicine
DX: Z12.31 Encounter for screening mammogram for malignant neoplasm of breast (principal); Z80.3 Family history of malignant neoplasm of breast
CPT/HCPCS: 77063; 77067

== ENCOUNTER → 2019-12-12 14:14 | Outpatient (CLI) | payer OTHER, SELFPAY | PROVIDERS: PCP Family Medicine; Referring Provider Family Medicine; Visit Provider Family Medicine | DX: M85.852 Other specified disorders of bone density and structure, left thigh (principal); Z78.0 Asymptomatic menopausal state | CPT/HCPCS: 77080 ==

== ENCOUNTER → 2020-03-05 11:59 | Outpatient (CLI) | payer MEDICARE, SELFPAY ==
[2020-03-05] MEDS: COVID-19 VACC #1, MRNA(MOD) 100 MCG/0.5 ML VIAL IM (12:05)
== END ==
PROVIDERS: PCP Family Medicine; Visit Provider Internal Medicine
DX: Z23 Encounter for immunization (principal)
CPT/HCPCS: 0011A; 91301

== ENCOUNTER → 2020-04-02 12:12 | Outpatient (CLI) | payer MEDICARE, SELFPAY ==
[2020-04-02] MEDS: COVID-19 VACC #2, MRNA(MOD) 100 MCG/0.5 ML VIAL IM (12:23)
== END ==
PROVIDERS: PCP Family Medicine; Visit Provider Internal Medicine
DX: Z23 Encounter for immunization (principal)
CPT/HCPCS: 0012A; 91301

== ENCOUNTER → 2020-07-19 10:35 | Outpatient (CLI) | payer OTHER, SELFPAY ==
--- NOTE | 2020-07-19 | DI.MG.S_ITS ---
BILATERAL DIGITAL SCREENING MAMMOGRAM 3D/2D WITH CAD: 07/19/2020 CLINICAL: Routine screening. Family history of breast cancer. Comparison is made to exams dated: 07/15/2019 mammogram, 05/23/2018 mammogram, and 05/20/2017 mammogram - [facility]. The tissue of both breasts is heterogeneously dense. This may lower the sensitivity of mammography. Current study was also evaluated with a Computer Aided Detection (CAD) system. There are benign post operative findings in the left breast. No significant masses, calcifications, or other findings are seen in either breast. There has been no significant interval change. IMPRESSION: BENIGN There is no mammographic evidence of malignancy. A 1 year screening mammogram is recommended. This exam was interpreted at Station ID: [id number]. NOTE: For mammograms, a report in lay terms will be sent to the patient. Approximately 15% of breast malignancies will not be visualized mammographically. In the management of a palpable breast mass, a negative mammogram must not discourage biopsy of a clinically suspicious lesion. Electronically Signed By: Jai Arriola acr/penrad:07/19/2020 12:19:13 letter sent: Normal Exam ACR BI-RADS Category 2: Benign Finding(s) 3342F
== END ==
PROVIDERS: PCP Family Medicine; Referring Provider Family Medicine; Visit Provider Family Medicine
DX: Z12.31 Encounter for screening mammogram for malignant neoplasm of breast (principal); Z80.3 Family history of malignant neoplasm of breast
CPT/HCPCS: 77063; 77067

== ENCOUNTER → 2020-12-04 12:48 | Outpatient (CLI) | payer OTHER, SELFPAY ==
--- NOTE | 2020-12-04 12:49 | DI.US.S_ITS ---
PROCEDURE: US ABDOMEN LIMITED INDICATIONS: LEFT INFRASCAPULAR LUMP TECHNIQUE: Real-time focused scanning was performed of the inguinal region, with image documentation. COMPARISON: None. FINDINGS: A heterogeneous mass is identified in the area of clinical concern, left infrascapular region, measuring 6 x 1.5 x 6.1 cm. IMPRESSION: Mass in the area of clinical concern as detailed above, which is incompletely characterized. Differential considerations include elastofibroma, hematoma, or neoplastic process. Consider CT or MR imaging for further evaluation. Dictated by: Tj Carmona M.D. on 12/04/2020 at 13:35 Approved by: Tj Carmona M.D. on 12/04/2020 at 13:39
== END ==
PROVIDERS: PCP Family Medicine; Referring Provider Family Medicine; Visit Provider Family Medicine
DX: R22.2 Localized swelling, mass and lump, trunk (principal)
CPT/HCPCS: 76705

== ENCOUNTER → 2020-12-07 12:31 | Outpatient (CLI) | payer OTHER, SELFPAY ==
--- NOTE | 2020-12-07 12:32 | DI.MRI.S_ITS ---
PROCEDURE: MR THORACIC SPINE WO CON INDICATIONS: left infrascapular mass TECHNIQUE: Noncontrast sagittal T1 spine echo and T2 fast spin echo, sagittal STIR, axial T1 and T2 fast spin echo through the thoracic spine. COMPARISON: CT, ABDOMEN/PELVIS WITH CONTRAST, 11/28/2012, 13:04. [facility], , US ABDOMEN LIMITED, 12/04/2020, 13:25. FINDINGS: Image quality: Excellent. Alignment and Curvature: There is normal bony alignment. Bone Marrow: Marrow is of normal overall signal. No acute vertebral body compression fractures. Spinal Cord: Visualized spinal cord is normal in size and signal. Paraspinous Soft Tissues: No paravertebral masses. Miscellaneous: On axial images, central canal and foramina appear widely patent at all scanned levels. IMPRESSION: 1. No definitively identified mass to correspond to area of palpable concern/ultrasound abnormality. Postcontrast MRI is recommended for further evaluation. Dictated by: Berenice Stevens M.D. on 12/09/2020 at 9:31 Approved by: Berenice Stevens M.D. on 12/09/2020 at 9:39
== END ==
PROVIDERS: PCP Family Medicine; Referring Provider Family Medicine; Visit Provider Family Medicine
DX: M79.89 Other specified soft tissue disorders (principal)
CPT/HCPCS: 72146

== ENCOUNTER → 2020-12-23 11:51 | Outpatient (CLI) | payer OTHER, SELFPAY ==
--- NOTE | 2020-12-23 11:53 | DI.MRI.S_ITS ---
PROCEDURE: MR THORACIC SPINE W CON INDICATIONS: left infrascapular mass TECHNIQUE: Noncontrast sagittal T1 spin echo and T2 fast spin echo, sagittal STIR, axial T1 and T2 fast spin echo through the thoracic spine. After the administration of contrast, axial and sagittal T1 spin echo with fat saturation through the thoracic spine. COMPARISON: [facility], MR, MR THORACIC SPINE WO CON, 12/07/2020, 13:00. FINDINGS: Image quality: Degraded by patient motion artifact. Alignment and curvature: There is normal bony alignment. Marrow: Marrow is of normal overall signal. No acute vertebral body compression fractures. Spinal cord: Visualized spinal cord is of normal signal and size, without abnormal enhancement. Paraspinous soft tissues: There is a 6.7 x 1.6 x 6.5 centimeter enhancing left chest wall mass situated between left 5th-7th ribs and the left latissimus dorsi muscle. No osseous destruction or osseous remodeling associated with the mass. No definite soft tissue edema is associated with the mass. Miscellaneous: Central canal and foramina appear widely patent at all scanned levels. IMPRESSION: 6.7 x 1.6 x 6.5 centimeter enhancing left chest wall mass with imaging characteristics suspicious for elastofibroma. Recommend MRI of the right chest wall with and without gadolinium to evaluate for bilaterally of the disease and orthopedic surgeon consultation. Dictated by: Linda Whittington MD, PhD on 12/23/2020 at 15:21 Approved by: Linda Whittington MD, PhD on 12/23/2020 at 15:36
== END ==
PROVIDERS: PCP Family Medicine; Referring Provider Family Medicine; Visit Provider Family Medicine
DX: R22.2 Localized swelling, mass and lump, trunk (principal)
CPT/HCPCS: 72147

== ENCOUNTER → 2021-05-06 12:17 | Outpatient (CLI) | payer OTHER, SELFPAY ==
[2021-05-06 13:22] LABS: Add Manual Diff / Slide Review NO; Basophils Absolute Auto 0 /uL (0-100); Basophils Percent Auto 0.8 % (0-2); Eosinophils Absolute Auto 200 /uL (0-450); Eosinophils Percent Auto 3.2 % (2-4); Hematocrit 39.4 % (36-46); Hemoglobin 13.2 g/dL (12.0-16.0); Lymphocytes Absolute Auto 1800 /uL (1100-4500); Lymphocytes Percent Auto 35.9 % (25-40); Mean Corpuscular HGB Conc 33.5 % (30-36); Mean Corpuscular Hemoglobin 31.7 PG (26-34); Mean Corpuscular Volume 94.5 fL (80-100); Monocytes Absolute Auto 400 /uL (0-900); Monocytes Percent Auto 8.6 % (3-14); Neutrophils Absolute Auto 2600 /uL (1500-7000); Neutrophils Percent Auto 51.5 % (50-75); Platelet Count 212 X10^3/uL (150-400); Red Blood Cell Count 4.17 X10^6/uL (4.0-5.2); Red Cell Distribution Width 13.3 % (11.6-14.8)
[2021-05-06 14:33] LABS: Alanine Aminotransferase 24 IU/L (<35); Albumin 4.5 g/dL (3.5-5.0); Albumin Globulin Ratio 1.6 (1.0-2.8); Alkaline Phosphatase 50 U/L (38-126); Aspartate Aminotransferase 30 IU/L (14-36); BUN Creatinine Ratio 24.6 (6-22); Bilirubin Total 0.5 mg/dL (0.2-1.3); Blood Urea Nitrogen 16 mg/dL (7-17); Calcium 9.7 mg/dL (8.4-10.2); Carbon Dioxide 30 mmol/L (22-32); Chloride 103 mmol/L (98-107); Estimated Glomerular Filt Rate > 60.0 mL/min (>60); Globulin 2.9 g/dL (1.7-4.1); Glucose 88 mg/dL (80-110); HEMOLYSIS < 15 (0-50); Sodium 140 mmol/L (137-145); Total Protein 7.4 g/dL (6.3-8.2)
== END ==
PROVIDERS: PCP Family Medicine; Referring Provider Family Medicine; Visit Provider Family Medicine
DX: R63.4 Abnormal weight loss (principal)
CPT/HCPCS: 36415; 80053; 85025

== ENCOUNTER → 2021-06-09 09:29 | Outpatient (CLI) | payer OTHER, SELFPAY ==
--- NOTE | 2021-06-09 09:30 | DI.US.S_ITS ---
PROCEDURE: US PELVIC COMPLETE INDICATIONS: RIGHT PELVIC PAIN TECHNIQUE: Real-time scanning was performed of the pelvic organs, with image documentation. Additional endovaginal scanning was necessary due to incomplete visualization of the adnexal and endometrial structures by transabdominal scanning. COMPARISON: [facility], , PELVIC COMPLETE, 10/25/2015, 14:34. FINDINGS: Uterus: Uterus is anteverted and normal in size at 4.2 x 3.5 x 2.3 cm. No fibroids. The myometrium is homogeneous. The endometrium measures 6 mm combined thickness. Ovaries: The right ovary measures 1.6 x 1.6 x 1.2 cm, with a calculated ovarian volume of 2 cc. The left ovary is not seen. Simple left ovarian cyst measuring 1.1 cm. Blood flow is seen in the right ovary. Less than 12 ovarian follicles. No adnexal masses are seen. Other: No pathologic free abdominal or pelvic fluid. IMPRESSION: 1. Source for pelvic pain is not identified. 2. Simple left ovarian cyst measuring 1.1 cm. 3. Left ovary is not seen. 4. Endometrium is mildly thickened measuring 6 mm. -Endometrial biopsy is recommended. We strive to produce accurate, complete, and clear reports of imaging services. To assist us in improving patient care, this report was composed using standard report templates and voice recognition software. Therefore, it may contain abnormal punctuation, insertions and/or omissions. Occasional wrong-word or sound-alike substitutions may occur. Though we review the report and make efforts to correct it, we do recommend that the report be read carefully in proper context to recognize any text inaccuracies. Dictated by: Ozzy Sandoval M.D. on 06/09/2021 at 10:35 Approved by: Ozzy Sandoval M.D. on 06/09/2021 at 10:41
== END ==
PROVIDERS: PCP Family Medicine; Referring Provider Family Medicine; Visit Provider Family Medicine
DX: R10.2 Pelvic and perineal pain (principal); N83.292 Other ovarian cyst, left side; R93.89 Abnormal findings on diagnostic imaging of other specified body structures
CPT/HCPCS: 76830; 76856

== ENCOUNTER → 2021-06-18 09:08 | Outpatient (CLI) | payer OTHER, SELFPAY ==
[2021-06-18 10:52] LABS: Lactate Dehydrogenase 409 U/L (313-618)
[2021-06-18 11:22] LABS: Cancer Antigen 125 6.5 U/mL (0-35); Carcinoembryonic Antigen 2.5 ng/mL (0.1-3.0)
[2021-06-19 06:43] LABS: Alpha Fetoprotein 1.6 ng/mL (0.0-9.2)
[2021-06-24 12:41] LABS: Inhibin B <7.0 pg/mL (0.0-16.9)
== END ==
PROVIDERS: PCP Family Medicine; Referring Provider Obstetrics & Gynecology; Visit Provider Obstetrics & Gynecology
DX: Z78.0 Asymptomatic menopausal state (principal); N83.201 Unspecified ovarian cyst, right side; R10.31 Right lower quadrant pain
CPT/HCPCS: 36415; 82105; 82378; 83520; 83615; 86304

== ENCOUNTER → 2021-07-22 11:21 | Outpatient (CLI) | payer OTHER, SELFPAY ==
--- NOTE | 2021-07-22 | DI.MG.S_ITS ---
BILATERAL DIGITAL SCREENING MAMMOGRAM 3D/2D WITH CAD: 07/22/2021 CLINICAL: Routine screening. Family history of breast cancer. Family history of breast cancer. Comparison is made to exams dated: 07/19/2020 mammogram, 07/15/2019 mammogram, and 05/23/2018 mammogram - [facility]. The tissue of both breasts is heterogeneously dense. This may lower the sensitivity of mammography. Current study was also evaluated with a Computer Aided Detection (CAD) system. There are benign post operative findings in the left breast. No significant masses, calcifications, or other findings are seen in either breast. There has been no significant interval change. IMPRESSION: BENIGN There is no mammographic evidence of malignancy. A 1 year screening mammogram is recommended. This exam was interpreted at Station ID: [id number]. NOTE: For mammograms, a report in lay terms will be sent to the patient. Approximately 15% of breast malignancies will not be visualized mammographically. In the management of a palpable breast mass, a negative mammogram must not discourage biopsy of a clinically suspicious lesion. Electronically Signed By: Sea vasquez/rogelio:07/22/2021 16:32:09 letter sent: Normal Exam ACR BI-RADS Category 2: Benign Finding(s) 3342F
== END ==
PROVIDERS: PCP Family Medicine; Referring Provider Family Medicine; Visit Provider Family Medicine
DX: Z12.31 Encounter for screening mammogram for malignant neoplasm of breast (principal); Z80.3 Family history of malignant neoplasm of breast
CPT/HCPCS: 77063; 77067

== ENCOUNTER → 2022-05-01 11:06 | Outpatient (CLI) | payer OTHER, SELFPAY ==
--- NOTE | 2022-05-01 11:07 | DI.US.S_ITS ---
PROCEDURE: US PELVIC COMPLETE INDICATIONS: Right ovarian cyst, endometrial thickening TECHNIQUE: Real-time scanning was performed of the pelvic organs, with image documentation. Additional endovaginal scanning was necessary due to incomplete visualization of the adnexal and endometrial structures by transabdominal scanning. COMPARISON: [facility], US, US PELVIC COMPLETE, 06/09/2021, 10:40. FINDINGS: Uterus: Uterus is anteverted and normal in size at 3.7 x 1.9 x 3.1 cm. The myometrium is homogeneous. The endometrium measures 6 mm combined thickness. Ovaries: Ovaries are not visualized. Previously seen right ovarian cyst is not seen. No adnexal masses are seen. Other: No pathologic free abdominal or pelvic fluid. IMPRESSION: Ovaries are not visualized. Previously seen right ovarian cyst is not redemonstrated. We strive to produce accurate, complete, and clear reports of imaging services. To assist us in improving patient care, this report was composed using standard report templates and voice recognition software. Therefore, it may contain abnormal punctuation, insertions and/or omissions. Occasional wrong-word or sound-alike substitutions may occur. Though we review the report and make efforts to correct it, we do recommend that the report be read carefully in proper context to recognize any text inaccuracies. Approved by: Ismael Craven M.D. on 05/01/2022 at 12:33
== END ==
PROVIDERS: PCP Family Medicine; Referring Provider Obstetrics & Gynecology; Visit Provider Obstetrics & Gynecology
DX: N83.201 Unspecified ovarian cyst, right side (principal); R93.89 Abnormal findings on diagnostic imaging of other specified body structures
CPT/HCPCS: 76830; 76856

== ENCOUNTER → 2022-07-24 10:13 | Outpatient (CLI) | payer OTHER, SELFPAY ==
--- NOTE | 2022-07-24 | DI.MG.S_ITS ---
BILATERAL DIGITAL SCREENING MAMMOGRAM 3D/2D WITH CAD: 07/24/2022 CLINICAL: Routine screening. Family history of breast cancer. Comparison is made to exams dated: 07/22/2021 mammogram, 07/19/2020 mammogram, and 07/15/2019 mammogram - [facility]. Both breasts are heterogeneously dense, which may obscure small masses (category c / 51-75% glandular tissue). Current study was also evaluated with a Computer Aided Detection (CAD) system. There are benign post operative findings in the left breast. No significant masses, calcifications, or other findings are seen in either breast. There has been no significant interval change. IMPRESSION: BENIGN There is no mammographic evidence of malignancy. A 1 year screening mammogram is recommended. Based on Tyrer-Cuzick model (a risk assessment model), the patient's lifetime risk is 20.2% and her 10 year risk is 13.1%. If a patient has an elevated risk, a more comprehensive evaluation should be considered and/or a referral to a genetic counselor. The [employer], [employer], and NCCN Guidelines advise the consideration of Breast MRI as an adjunct to screening mammography in patients whose Lifetime risk to develop breast cancer is 20% or higher. This exam was interpreted at Station ID: [id number]. NOTE: For mammograms, a report in lay terms will be sent to the patient. Approximately 15% of breast malignancies will not be visualized mammographically. In the management of a palpable breast mass, a negative mammogram must not discourage biopsy of a clinically suspicious lesion. Electronically Signed By: Sea vasquez/rogelio:07/24/2022 11:15:43 letter sent: Normal Exam ACR BI-RADS Category 2: Benign Finding(s) 3342F
== END ==
PROVIDERS: PCP Family Medicine; Referring Provider Family Medicine; Visit Provider Family Medicine
DX: Z12.31 Encounter for screening mammogram for malignant neoplasm of breast (principal); Z80.3 Family history of malignant neoplasm of breast
CPT/HCPCS: 77063; 77067

== ENCOUNTER → 2022-09-28 10:14 | Outpatient (CLI) | payer OTHER, SELFPAY ==
[2022-09-28 11:03] LABS: Add Manual Diff / Slide Review NO; Basophils Absolute Auto 0 /uL (0-100); Basophils Percent Auto 0.8 % (0-2); Eosinophils Absolute Auto 200 /uL (0-450); Eosinophils Percent Auto 3.5 % (2-4); Hematocrit 39.6 % (36-46); Hemoglobin 13.5 g/dL (12.0-16.0); Lymphocytes Absolute Auto 1600 /uL (1100-4500); Mean Corpuscular Hemoglobin 31.8 PG (26-34); Mean Corpuscular Volume 93.5 fL (80-100); Monocytes Absolute Auto 400 /uL (0-900); Monocytes Percent Auto 9.6 % (3-14); Neutrophils Absolute Auto 2300 /uL (1500-7000); Neutrophils Percent Auto 51.1 % (50-75); Platelet Count 206 X10^3/uL (150-400); Red Blood Cell Count 4.23 X10^6/uL (4.0-5.2); Red Cell Distribution Width 13.2 % (11.6-14.8); White Blood Cell Count 4.6 X10^3/uL (4.5-11.0)
[2022-09-28 11:30] LABS: Alanine Aminotransferase 21 IU/L (<35); Albumin 4.2 g/dL (3.5-5.0); Albumin Globulin Ratio 1.3 (1.0-2.8); Alkaline Phosphatase 50 U/L (38-126); Aspartate Aminotransferase 26 IU/L (14-36); BUN Creatinine Ratio 17.7 (6-22); Bilirubin Total 0.4 mg/dL (0.2-1.3); Blood Urea Nitrogen 11 mg/dL (7-17); Calcium 9.8 mg/dL (8.4-10.2); Carbon Dioxide 31 mmol/L (22-32); Chloride 104 mmol/L (98-107); Cholesterol 246 mg/dL (140-199); Estimated Glomerular Filt Rate > 60 mL/min (>60); Globulin 3.2 g/dL (1.7-4.1); Glucose 93 mg/dL (80-110); HDL Cholesterol 79 mg/dL (40-60); HEMOLYSIS < 15 (0-50); LDL Cholesterol Calculated 142 mg/dL (<100); Potassium 4.3 mmol/L (3.4-5.1); Sodium 139 mmol/L (137-145); Total Protein 7.4 g/dL (6.3-8.2); Triglycerides 125 mg/dL (35-150)
[2022-09-28 12:11] LABS: Hep C Virus Ab w/Reflex Quant NEGATIVE s/c (NEGATIVE)
== END ==
PROVIDERS: PCP Family Medicine; Referring Provider Family Medicine; Visit Provider Family Medicine
DX: E78.2 Mixed hyperlipidemia (principal); R10.31 Right lower quadrant pain; Z11.59 Encounter for screening for other viral diseases
CPT/HCPCS: 36415; 80053; 80061; 85025; 86803

== ENCOUNTER → 2022-10-09 12:00 | Outpatient (CLI) | payer OTHER, SELFPAY ==
--- NOTE | 2022-10-09 12:01 | DI.CT.S_ITS ---
PROCEDURE: CT ABDOMEN PELVIS W CON INDICATIONS: Right lower quadrant pain TECHNIQUE: After the administration of intravenous contrast, axial sections acquired from the lung bases to the pubic symphysis. Coronal and sagittal reformats were performed. For radiation dose reduction, the following was used: automated exposure control, adjustment of mA and/or kV according to patient size. COMPARISON: [facility], CT, ABDOMEN/PELVIS WITH CONTRAST, 11/28/2012, 13:04. FINDINGS: Image quality: Excellent. Lung bases: Unremarkable. Heart: No significant findings. Moderate coronary artery calcifications. ABDOMEN: Liver: Unremarkable. Gallbladder: Unremarkable. Biliary ducts: Unremarkable. Pancreas: Unremarkable. Spleen: Unremarkable. Adrenal Glands: Unremarkable. Kidneys and Ureters: Unremarkable. Stomach and Bowel: Stomach, small bowel loops, and colon are unremarkable. Diverticulosis without evidence of acute diverticulitis. Normal appendix. Peritoneum: No abnormal intraperitoneal fluid. No free air. Ventral Wall: No hernias. Abdominal Nodes: No retroperitoneal or mesenteric adenopathy by size criteria. Vessels: Aorta and inferior vena cava are normal in size. Atherosclerotic vascular calcifications. PELVIS: Pelvic Organs: Unremarkable. Bladder: Decompressed, limiting evaluation. Pelvic Nodes: No enlarged lymph nodes. Miscellaneous: No hernias are seen. Bones: Decreased osseous mineralization and multilevel degenerative changes of the spine. IMPRESSION: 1. No cause for patient's abdominal pain is identified. 2. Diverticulosis without evidence of acute diverticulitis. Normal appendix. Dictated by: Ramsey Moore M.D. on 10/09/2022 at 15:36 Approved by: Ramsey Moore M.D. on 10/09/2022 at 15:41
== END ==
PROVIDERS: PCP Family Medicine; Referring Provider Family Medicine; Visit Provider Family Medicine
DX: K57.90 Diverticulosis of intestine, part unspecified, without perforation or abscess without bleeding (principal); I25.10 Atherosclerotic heart disease of native coronary artery without angina pectoris; R10.31 Right lower quadrant pain; E78.2 Mixed hyperlipidemia
CPT/HCPCS: 74177; Q9967

== ENCOUNTER → 2023-07-29 12:40 | Outpatient (CLI) | payer OTHER, SELFPAY ==
--- NOTE | 2023-07-29 12:41 | DI.MG.S_ITS ---
BILATERAL DIGITAL SCREENING MAMMOGRAM 3D/2D WITH CAD: 07/29/2023 CLINICAL: Routine screening. Family history of breast cancer. Comparison is made to exams dated: 07/24/2022 mammogram, 07/22/2021 mammogram, and 07/19/2020 mammogram - [facility]. Both breasts are heterogeneously dense, which may obscure small masses (category c / 51-75% glandular tissue). Current study was also evaluated with a Computer Aided Detection (CAD) system. There are benign post operative findings in the left breast. No significant masses, calcifications, or other findings are seen in either breast. There has been no significant interval change. IMPRESSION: BENIGN There is no mammographic evidence of malignancy. A 1 year screening mammogram is recommended. Based on the Tyrer Cuzick model (a risk assessment model) the patient's lifetime risk is 19.2% and her 10 year risk is 13.4%. According to the ACR, ACS, and NCCN guidelines, an annual breast MRI exam along with mammogram is recommended if the patient's lifetime risk is 20% or greater. This exam was interpreted at Station ID: [id number]. NOTE: For mammograms, a report in lay terms will be sent to the patient. Approximately 15% of breast malignancies will not be visualized mammographically. In the management of a palpable breast mass, a negative mammogram must not discourage biopsy of a clinically suspicious lesion. Electronically Signed By: Suman [email or web address]:07/29/2023 13:55:01 letter sent: Normal Exam ACR BI-RADS Category 2: Benign Finding(s) 3342F
== END ==
LOC: MAMMO 12:40
PROVIDERS: PCP Family Medicine; Referring Provider Family Medicine; Visit Provider Family Medicine
DX: Z12.31 Encounter for screening mammogram for malignant neoplasm of breast (principal); Z80.3 Family history of malignant neoplasm of breast; R92.333 Mammographic heterogeneous density, bilateral breasts
CPT/HCPCS: 77063; 77067

== ENCOUNTER → 2023-10-04 10:06 | Outpatient (CLI) | payer OTHER, SELFPAY ==
[2023-10-04 11:17] LABS: Hematocrit 40.6 % (36-46); Hemoglobin 13.7 g/dL (12.0-16.0); Mean Corpuscular HGB Conc 33.7 % (30-36); Mean Corpuscular Volume 95.1 fL (80-100); Platelet Count 229 X10^3/uL (150-400); Red Blood Cell Count 4.27 X10^6/uL (4.0-5.2); Red Cell Distribution Width 13.3 % (11.6-14.8); White Blood Cell Count 5.6 X10^3/uL (4.5-11.0)
[2023-10-04 11:47] LABS: Alanine Aminotransferase 23 IU/L (<35); Albumin 4.3 g/dL (3.5-5.0); Albumin Globulin Ratio 1.5 (1.0-2.8); Alkaline Phosphatase 54 U/L (38-126); Aspartate Aminotransferase 27 IU/L (14-36); BUN Creatinine Ratio 20.3 (6-22); Bilirubin Total 0.7 mg/dL (0.2-1.3); Blood Urea Nitrogen 13 mg/dL (7-17); Calcium 9.5 mg/dL (8.4-10.2); Carbon Dioxide 27 mmol/L (22-32); Chloride 106 mmol/L (98-107); Cholesterol 234 mg/dL (140-199); Estimated Glomerular Filt Rate > 60 mL/min (>60); Globulin 2.9 g/dL (1.7-4.1); Glucose 98 mg/dL (80-110); HDL Cholesterol 89 mg/dL (40-60); HEMOLYSIS < 15 (0-50); LDL Cholesterol Calculated 132 mg/dL (<100); Potassium 4.3 mmol/L (3.4-5.1); Sodium 138 mmol/L (137-145); Total Protein 7.2 g/dL (6.3-8.2); Triglycerides 66 mg/dL (35-150)
== END ==
PROVIDERS: PCP Family Medicine; Referring Provider Family Medicine; Visit Provider Family Medicine
DX: Z00.00 Encounter for general adult medical examination without abnormal findings (principal); E78.2 Mixed hyperlipidemia
CPT/HCPCS: 36415; 80053; 80061; 85027

== ENCOUNTER → 2024-08-16 08:12 | Outpatient (CLI) | payer OTHER, SELFPAY ==
--- NOTE | 2024-08-16 08:14 | DI.MG.S_ITS ---
MM screening mammo BI: 08/16/2024. BI-RADS: 2 CLINICAL: 73-year old female for bilateral screening mammogram. Tyrer-Cuzick lifetime risk of 14.5%. Current reported family history of breast cancer: sister and paternal aunt. The patient had a prior left breast biopsy. PRIOR EXAMS 07/29/2023, 07/24/2022, 07/22/2021, 07/19/2020. MAMMOGRAPHY TECHNIQUE: 2D and 3D (tomosynthesis) digital mammographic views obtained, with additional images as needed for full coverage. Current study was also evaluated with a Computer Aided Detection (CAD) system. DENSITY C. The breasts are heterogeneously dense, which may obscure small masses. MAMMOGRAPHY FINDINGS Right: No suspicious mass, asymmetry, microcalcification, or other abnormality seen. No significant change from comparison. Left: Benign-appearing post-surgical changes noted on the left. There are no suspicious masses, calcifications, or other findings in the breast. No significant change from comparison. IMPRESSION: Right * No evidence of malignancy. Left * No evidence of malignancy with benign findings. RECOMMENDATIONS Bilateral * Annual screening mammography. OVERALL ASSESSMENT CATEGORY BI-RADS-2: Benign. The [employer] recommends annual screening mammography beginning at age 40 for women with average risk of breast cancer. PRELIMINARILY ELECTRONICALLY SIGNED: Myla Titus M.D. on 08/16/2024 at 03:55:07 PM PT ELECTRONICALLY SIGNED: Myla Titus M.D. on 08/18/2024 at 05:19:12 PM PT Interpreting Station ID: [id number]
== END ==
PROVIDERS: PCP Family Medicine; Referring Provider Family Medicine; Visit Provider Family Medicine
DX: Z12.31 Encounter for screening mammogram for malignant neoplasm of breast (principal); Z80.3 Family history of malignant neoplasm of breast; R92.333 Mammographic heterogeneous density, bilateral breasts
CPT/HCPCS: 77063; 77067